=== PATIENT | female | born 1970 | race Caucasian/White ===

== ENCOUNTER 2019-11-11 14:56 | Emergency (ER) | payer BC ==
[2019-11-11] MEDS: Sodium Chloride 0.9% 500 ML IV SCH (15:45)
[2019-11-11 15:49] LABS: ANION GAP 16.4 mEq/L (7-13)
--- NOTE | 2019-11-11 16:55 | EDM.PDOC ---
Scribed by Mera Patterson 11/11/19 [id number] for Tisha Dodd NP ED HPI GENERAL MEDICAL PROBLEM - General Chief Complaint: Abdominal Pain Stated Complaint: ABDOMINAL PAIN, CHILLS Time Seen by Provider: 11/11/19 15:11 Source of Information: Reports: Patient, RN, RN Notes Reviewed History Limitations: Reports: No Limitations - History of Present Illness INITIAL COMMENTS - FREE TEXT/NARRATIVE: Patient presents to the ER with complaint of lower abdominal pain, diarrhea and chills that started at 1 P.M. today. She ate pizza last night and a cheeseburger and fires for lunch. She has no nausea or urinary symptoms. She had been vacationing out in [place] and just returned on . They came to [place] because they have a mar home here. Patient still has appendix and gallbladder. Surgery: Hysterectomy, mastectomy Onset: Today Duration: Getting Worse Location: Reports: Abdomen Quality: Reports: Ache Severity: Moderate Improves with: Reports: None Worsens with: Reports: None Associated Symptoms: Reports: No Other Symptoms - Related Data Allergies Allergy/AdvReac Type Severity Reaction Status Date / Time steri-strips Allergy Rash Uncoded 11/11/19 15:07 Home Meds: Home Meds Levothyroxine Sodium [Synthroid] 11/11/19 [History] Losartan [Cozaar] 11/11/19 [History] Venlafaxine [Effexor] 11/11/19 [History] Past Medical History Cardiovascular History: Reports: Hypertension [employer] History: Reports: Other (See Below) (hot flashes) Psychiatric History: Reports: Depression Endocrine/Metabolic History: Reports: Hypothyroidism Oncologic (Cancer) History: Reports: Breast - Past Surgical History Female Surgical History: Reports: Hysterectomy Oncologic Surgical History: Reports: Mastectomy ED ROS GENERAL - Review of Systems Review Of Systems: Comprehensive ROS is negative, except as noted in HPI. ED EXAM, GI/ABD - Physical Exam Exam: See Below Exam Limited By: No Limitations General Appearance: Anxious (and chilled) Eyes: Bilateral: Normal Appearance Ears: Normal External Exam, Normal Canal, Hearing Grossly Normal, Normal TMs Nose: Normal Inspection, Normal Mucosa, No Blood Throat/Mouth: Normal Inspection, Normal Lips, Normal Teeth, Normal Gums, Normal Oropharynx, Normal Voice, No Airway Compromise Head: Atraumatic, Normocephalic Neck: Normal Inspection, Supple, Non-Tender, Full Range of Motion Respiratory/Chest: No Respiratory Distress, Lungs Clear, Normal Breath Sounds, No Accessory Muscle Use, Chest Non-Tender Cardiovascular: Normal Peripheral Pulses, Regular Rate, Rhythm, No Edema, No Gallop, No JVD, No Murmur, No Rub GI/Abdominal Exam: Normal Bowel Sounds, Soft, Tender (right lower quadrant. ), Other (History of complete hysterectomy) (Female) Exam: Deferred Rectal (Female) Exam: Deferred Back Exam: Normal Inspection, Full Range of Motion, NT Extremities: Normal Inspection, Normal Range of Motion, Non-Tender, Normal Capillary Refill, No Pedal Edema Neurological: Alert, Oriented, CN II-XII Intact, Normal Cognition, Normal Gait, Normal Reflexes, No Motor/Sensory Deficits Psychiatric: Normal Affect, Normal Mood Skin Exam: Warm, Dry, Intact, Normal Color, No Rash Course - Vital Signs Text/Narrative:: CBC, CMP, lipase/amylase and UA normal. COVID Negative. Her pain seems to come and go in the lower abdomen; cramping. Hx of hysterectomy. No diarrhea since in ER. no nausea or blood in stool. Received IVF. She will f/u with a provider in 24 hours if still having abdominal pain and diarrhea. May have a little travelers diarrhea; will treat for travel diarrhea with cipro 500 mg now and daily x 3 days total. Increase Po fluids Last Recorded V/S: Last Vital Signs Temp 98 F 11/11/19 15:11 Pulse 98 11/11/19 15:11 Resp 20 11/11/19 15:11 BP 150/109 H 11/11/19 15:11 Pulse Ox 100 11/11/19 15:11 - Orders/Labs/Meds Orders: Active Orders 24 hr Category Date Time Status CULTURE URINE [RM] Stat Lab 11/11/19 15:08 Received Sodium Chloride 0.9% [Normal Saline] 500 ml Med 11/11/19 15:30 Active IV .BOLUS Medication Orders Sodium Chloride (Normal Saline) 500 mls @ 999 mls/hr IV .BOLUS BEE Last Admin: 11/11/19 15:45 Dose: 999 mls/hr Documented by: CRYSTAL Labs: Laboratory Tests 11/11/19 11/11/19 11/11/19 Range/Units 15:08 15:24 15:24 WBC 9.5 (5.0-10.0) 10^3/uL RBC 4.46 (4.2-5.4) 10^6/uL Hgb 13.9 (12.0-16.0) g/dL Hct 40.4 (37.0-47.0) % MCV 90.6 (80-100) fL MCH 31.2 (27.0-34.0) pg MCHC 34.4 (33.0-35.0) g/dL Plt Count 336 (150-450) 10^3/uL Sodium 139 (136-145) mmol/L Potassium 3.4 L (3.5-5.1) mmol/L Chloride 99 (98-107) mmol/L Carbon Dioxide 27 (21-32) mmol/L Anion Gap 16.4 H (7-13) mEq/L BUN 10 (7-18) mg/dL Creatinine 1.04 H (0.55-1.02) mg/dL Est Cr Clr Drug Dosing 57.59 mL/min Estimated GFR (MDRD) 56 BUN/Creatinine Ratio 9.6 (No establ ref range) Glucose 118 H (74-99) mg/dL Calcium 9.0 (8.5-10.1) mg/dL Total Bilirubin 0.4 (0.2-1.0) mg/dL AST 18 (15-37) U/L ALT 23 (14-59) U/L Alkaline Phosphatase 96 (46-116) U/L Total Protein 8.4 H (6.4-8.2) g/dL Albumin 4.3 (3.4-5.0) g/dL Globulin 4.1 Albumin/Globulin Ratio 1.0 Amylase 59 (25-115) U/L Lipase 105 (73-393) U/L Urine Color Yellow (YELLOW) Urine Appearance Slightly cloudy (CLEAR) Urine pH 7.0 (5.0-9.0) Ur Specific [place] 1.020 (1.005-1.030) Urine Protein 30 H (NEGATIVE) Urine Glucose (UA) Negative (NEGATIVE) Urine Ketones Trace H (NEGATIVE) Urine Occult Blood Trace-intact H (NEGATIVE) Urine Nitrite Negative (NEGATIVE) Urine Bilirubin Negative (NEGATIVE) Urine Urobilinogen 0.2 (0.2-1.0) mg/dL Ur Leukocyte Esterase Trace H (NEGATIVE) Urine RBC 0-5 /HPF Urine WBC 0-5 (0-5/HPF) /HPF Ur Epithelial Cells Few (NOT SEEN) /HPF Amorphous Sediment Few (NOT SEEN) /HPF Urine Bacteria Rare (0-FEW/HPF) /HPF Urine Mucus Few H (NOT SEEN) /LPF COVID-19 ([facility]) (NEGATIVE) 11/11/19 Range/Units 15:27 WBC (5.0-10.0) 10^3/uL RBC (4.2-5.4) 10^6/uL Hgb (12.0-16.0) g/dL Hct (37.0-47.0) % MCV (80-100) fL MCH (27.0-34.0) pg MCHC (33.0-35.0) g/dL Plt Count (150-450) 10^3/uL Sodium (136-145) mmol/L Potassium (3.5-5.1) mmol/L Chloride (98-107) mmol/L Carbon Dioxide (21-32) mmol/L Anion Gap (7-13) mEq/L BUN (7-18) mg/dL Creatinine (0.55-1.02) mg/dL Est Cr Clr Drug Dosing mL/min Estimated GFR (MDRD) BUN/Creatinine Ratio (No establ ref range) Glucose (74-99) mg/dL Calcium (8.5-10.1) mg/dL Total Bilirubin (0.2-1.0) mg/dL AST (15-37) U/L ALT (14-59) U/L Alkaline Phosphatase (46-116) U/L Total Protein (6.4-8.2) g/dL Albumin (3.4-5.0) g/dL Globulin Albumin/Globulin Ratio Amylase (25-115) U/L Lipase (73-393) U/L Urine Color (YELLOW) Urine Appearance (CLEAR) Urine pH (5.0-9.0) Ur Specific [place] (1.005-1.030) Urine Protein (NEGATIVE) Urine Glucose (UA) (NEGATIVE) Urine Ketones (NEGATIVE) Urine Occult Blood (NEGATIVE) Urine Nitrite (NEGATIVE) Urine Bilirubin (NEGATIVE) Urine Urobilinogen (0.2-1.0) mg/dL Ur Leukocyte Esterase (NEGATIVE) Urine RBC /HPF Urine WBC (0-5/HPF) /HPF Ur Epithelial Cells (NOT SEEN) /HPF Amorphous Sediment (NOT SEEN) /HPF Urine Bacteria (0-FEW/HPF) /HPF Urine Mucus (NOT SEEN) /LPF COVID-19 ([facility]) Negative (NEGATIVE) Meds: Medications Generic Name Dose Route Start Last Admin Trade Name Molly PRN Reason Stop Dose Admin Sodium Chloride 500 mls @ 999 mls/hr 11/11/19 15:30 11/11/19 15:45 Normal Saline IV 999 mls/hr .BOLUS BEE Administration Departure - Departure Time of Disposition: 16:52 Disposition: Home, Self-Care 01 Condition: Good Clinical Impression: Travelers' diarrhea - Discharge Information Forms: ED Department Discharge Additional Instructions: CBC, CMP, lipase/amylase and UA normal. COVID Negative. Follow up with a provider in 24 hours if still having abdominal pain that is not improving. May have a little travelers diarrhea; will treat for travel diarrhea with cipro 500 mg now and daily x 3 days total. Increase Po fluids Sepsis Event Note (ED) - Focused Exam Vital Signs: Vital Signs Temp Pulse Resp BP Pulse Ox 11/11/19 15:11 98 F 98 20 150/109 H 100 - My Orders Last 24 Hours: My Active Orders 11/11/19 15:08 CULTURE URINE [RM] Stat 11/11/19 15:30 Sodium Chloride 0.9% [Normal Saline] 500 ml IV .BOLUS - Assessment/Plan Last 24 Hours: My Active Orders 11/11/19 15:08 CULTURE URINE [RM] Stat 11/11/19 15:30 Sodium Chloride 0.9% [Normal Saline] 500 ml IV .BOLUS I have read and agree with the documentation that has been completed regarding this visit. By signing this record, I attest that the documentation was completed in my physical presence and is an accurate record of the encounter.
[2019-11-11] MEDS: Ciprofloxacin 500 MG Tab PO ONE (17:05)
== END 2019-11-11 17:06 | disposition home or self-care (01) ==
LOC: DL.ED 14:56
DX: R19.7 Diarrhea, unspecified (principal); I10 Essential (primary) hypertension; Z91.048 Other nonmedicinal substance allergy status; Z20.828 Contact with and (suspected) exposure to other viral communicable diseases
CPT/HCPCS: 36415; 80053; 81001; 82150; 83690; 85027; 87086; 87635; 96360; 99284; A9270; J7040; 99283; U0002